=== PATIENT | female | born 1970 | race Hispanic/Latino ===

== ENCOUNTER 2022-03-08 22:10 | Emergency (ER) | payer MEDICAID ==
[~2022-03-08] VITALS: Ht 162.6 cm; Wt 75.5 kg
[2022-03-08 22:16] VITALS: BP 150/91
[2022-03-08] MEDS ORDERED: ACETAMINOPHEN 500 MG TABLET PO ONE (23:00)
[2022-03-08] MEDS ORDERED: GUAIFENESIN-DM 200/20 MG 10 ML ONE (23:00)
[2022-03-08] MEDS ORDERED: GUAIFENESIN-CODEINE 5 ML SYRUP PO ONE (23:00)
[2022-03-08] MEDS ORDERED: D-ME1POW16 PO (23:27)
[2022-03-08] MEDS ORDERED: ALBU6.7H14 IH (23:27)
== END 2022-03-08 23:49 | disposition home or self-care (01) ==
LOC: EDH 22:10
DX: J06.9 Acute upper respiratory infection, unspecified (principal); B97.89 Other viral agents as the cause of diseases classified elsewhere; F41.9 Anxiety disorder, unspecified; E11.9 Type 2 diabetes mellitus without complications; I10 Essential (primary) hypertension; F32.9 Major depressive disorder, single episode, unspecified; Z20.822 Contact with and (suspected) exposure to COVID-19; Z79.899 Other long term (current) drug therapy; Z90.49 Acquired absence of other specified parts of digestive tract
CPT/HCPCS: 99283; 87635; 87804 ×2; C9803

== ENCOUNTER 2022-03-22 22:54 | Emergency (ER) | payer MEDICAID ==
[~2022-03-22] VITALS: Ht 162.6 cm; Wt 73.0 kg
[~2022-03-22 22:54] MED LIST: ALBU6.7H14 IH; D-ME1POW16 PO
[2022-03-22] MEDS ORDERED: DiphenhydrAMINE HCL 25 MG/10 ML ELIXIR UDCUP ONE (23:00)
[2022-03-22] MEDS ORDERED: DiphenhydrAMINE HCL 25 MG/10 ML ELIXIR UDCUP PO ONE (23:00)
[2022-03-23 03:12] VITALS: BP 122/76
== END 2022-03-23 03:16 | disposition left against medical advice (07) ==
LOC: EDH 22:54
DX: F41.9 Anxiety disorder, unspecified (principal); R00.0 Tachycardia, unspecified
CPT/HCPCS: 99282